=== PATIENT | female | born 1945 | race Caucasian/White ===

== ENCOUNTER 2016-11-16 08:47 | Outpatient (CLI) | payer MEDICARE, OTHER ==
[2016-11-16 09:32] LABS: eGFR (African) > 60; eGFR (Non-African) > 60
== END 2016-11-16 08:50 ==
LOC: LAB 08:47
PROVIDERS: ATTEND Family Medicine
DX: E78.2 Mixed hyperlipidemia (principal)
CPT/HCPCS: 36415; 80053; 80061

== ENCOUNTER 2016-11-20 10:25 | Outpatient (CLI) | payer MEDICARE, OTHER | END 2016-11-20 10:26 | LOC: RAD 10:25 | PROVIDERS: ATTEND Family Medicine | DX: M81.0 Age-related osteoporosis without current pathological fracture (principal) | CPT/HCPCS: 77080 ==

== ENCOUNTER 2016-12-06 12:52 | Outpatient (CLI) | payer MEDICARE, OTHER ==
[2016-12-06] MEDS ORDERED: DENOSUMAB 60 MG/ML ML SQ SCH (13:00)
[2016-12-06] MEDS ORDERED: DENOSUMAB 60 MG/ML ML SQ ONE (13:00)
== END 2016-12-06 12:53 ==
LOC: INF 12:52
PROVIDERS: ATTEND Family Medicine
DX: M81.0 Age-related osteoporosis without current pathological fracture (principal)
CPT/HCPCS: 96372; J0897

== ENCOUNTER 2017-05-14 08:46 | Day surgery (SDC) | payer MEDICARE, OTHER ==
[~2017-05-14 08:46] MED LIST: LACTATED RINGERS 1,000 ML IV.SOLN IV ONE; LIDOCAINE HCL/PF 2% 100 MG/5 ML VIAL IJ ONE; PROPOFOL 500 MG/50 ML VIAL IV ONE; SALINE FLUSH 10 ML DISP.SYRIN IVF ONE
--- NOTE | 2017-05-14 11:44 | GI Report ---
REFERRING PHYSICIAN: Dr. Alondra Narvaez LEARNING DISABLED TEACHER: Farhat Jonas MD PROCEDURE MEDICATION: Propofol as per anesthesia. INDICATIONS: Patient is a 71-year-old woman who has had a number of adenomatous polyps removed at the [facility] a little over 3 years ago. She has had polyps on a number of occasions. She denies a family history of colorectal cancer, though she has been a cigarette smoker for 40 years and still smokes. She also has hypertension and hyperlipidemia. PROCEDURE PERFORMED: Colonoscopy and polypectomy. PROCEDURE: An Olympus video colonoscope was advanced and slowly advanced all the way to the cecum. In the ascending colon, there was a 3 mm flat polyp removed with electrocautery. In the proximal transverse colon, there was a 4 mm polyp removed with electrocautery. In the sigmoid, the patient has multiple hyperplastic-appearing polyps. Four were removed, some of the larger ones to submit to pathology, but there were a number of polyps that were 2 mm size in the rectum and sigmoid consistent with hyperplastic polyps. Patient tolerated the procedure well. FINDINGS: Serrated adenoma-appearing polyp in the ascending colon and in the transverse colon and a number of probable hyperplastic polyps. The larger ones, 4 removed in the sigmoid colon. RECOMMENDATIONS: 1. Pending the pathology of the polyps, consider re-looking at her colon within 5 years. 2. Recommend strongly she discontinue tobacco usage, which is a risk factor for colon polyps and cancer formation. 3. Increase fiber in her diet. 4. Follow up with Dr. Narvaez. cc: Dr. Alondra MORENO
== END 2017-05-14 08:47 ==
LOC: OPSURG 08:46
PROVIDERS: ATTEND Internal Medicine Gastroenterology
DX: Z12.11 Encounter for screening for malignant neoplasm of colon (principal); D12.5 Benign neoplasm of sigmoid colon; D12.3 Benign neoplasm of transverse colon
CPT/HCPCS: 88305; J2001; J2704; J7120; 45385; S1016

== ENCOUNTER 2017-05-28 14:53 | Outpatient (CLI) | payer MEDICARE, OTHER ==
[2017-05-28 15:20] LABS: BASOPHILS % 0.6 (0.0-1.5); EOSINOPHILS % 2.1 % (0.0-6.8); MEAN CORPUSCULAR HEMOGLOBIN 31.2 pg (28.0-34.0); MEAN CORPUSCULAR VOLUME 94.8 fl (80.0-100.0); MONOCYTES % 4.6 % (0.0-11.0); NEUTROPHILS # 5.1 # k/uL (1.4-7.7)
[2017-05-28 15:40] LABS: eGFR (African) > 60; eGFR (Non-African) > 60
== END 2017-05-28 14:55 ==
LOC: LAB 14:53
PROVIDERS: ATTEND Family Medicine
DX: R42 Dizziness and giddiness (principal)
CPT/HCPCS: 36415; 80053; 85025

== ENCOUNTER 2017-06-11 08:32 | Outpatient (CLI) | payer MEDICARE, OTHER ==
[2017-06-11] MEDS ORDERED: DENOSUMAB 60 MG/ML ML SQ SCH (13:00)
[2017-06-11] MEDS ORDERED: DENOSUMAB 60 MG/ML ML SQ ONE (13:00)
== END 2017-06-11 09:00 ==
LOC: INF 08:32
PROVIDERS: ATTEND Family Medicine
DX: M81.0 Age-related osteoporosis without current pathological fracture (principal)
CPT/HCPCS: 96372; J0897

== ENCOUNTER 2017-11-27 08:42 | Outpatient (CLI) | payer MEDICARE, OTHER ==
[2017-11-27 09:26] LABS: eGFR (African) > 60; eGFR (Non-African) > 60
== END 2017-11-27 08:44 ==
LOC: LAB 08:42
PROVIDERS: ATTEND Family Medicine
DX: E78.2 Mixed hyperlipidemia (principal)
CPT/HCPCS: 36415; 80053; 80061

== ENCOUNTER 2017-12-10 12:55 | Outpatient (CLI) | payer MEDICARE, OTHER ==
[2017-12-10] MEDS ORDERED: DENOSUMAB 60 MG/ML ML SQ ONE (13:00)
[2017-12-10] MEDS ORDERED: DENOSUMAB 60 MG/ML ML SQ SCH (14:00)
== END 2017-12-10 12:56 ==
LOC: INF 12:55
PROVIDERS: ATTEND Family Medicine
DX: M81.0 Age-related osteoporosis without current pathological fracture (principal)
CPT/HCPCS: 96372; J0897

== ENCOUNTER 2018-06-24 09:49 | Outpatient (CLI) | payer MEDICARE, OTHER ==
[~2018-06-24 09:49] MED LIST changes: +DENOSUMAB 60 MG/ML SYRINGE SQ ONE; -LACTATED RINGERS 1,000 ML IV.SOLN IV ONE; -LIDOCAINE HCL/PF 2% 100 MG/5 ML VIAL IJ ONE; -PROPOFOL 500 MG/50 ML VIAL IV ONE; -SALINE FLUSH 10 ML DISP.SYRIN IVF ONE
== END 2018-06-24 09:50 ==
LOC: INF 09:49
PROVIDERS: ATTEND Family Medicine
DX: M81.0 Age-related osteoporosis without current pathological fracture (principal)
CPT/HCPCS: 96372; J0897

== ENCOUNTER 2018-12-10 08:24 | Outpatient (CLI) | payer MEDICARE, OTHER ==
--- NOTE | 2018-12-10 10:35 | Diagnostic Imaging Report ---
JANET TOVAR [facility] [address] [id number] Report Submission Date: December 10, 2018 10:17:21 AM CDT Patient Study Name: MANNY DIGGS Date: December 10, 2018 12:00:00 AM CDT Modality Type: DEXA\OT Gender: F Description: : 45 Institution: [facility] Physician: JANET TOVAR Examination: Bone density History: Assess bone mineralization Comparison exams: 20 November 2016 Technique: DEXA protocol Findings: Average bone mineral density from L1 through L4: 0.798 grams cm2. T score: -3.2 Average bone mineral density of the left femoral neck: 0.640 grams cm2. T score: -2.9 Average bone mineral density of the right femoral neck: 0.691grams cm2. T score: -2.5 Impression: Lumbar spine and hip osteoporosis. Electronically signed on December 10, 2018 10:17:21 AM CDT by: Darinel MORENO
== END 2018-12-10 08:25 ==
LOC: RAD 08:24
PROVIDERS: ATTEND Family Medicine
DX: M81.0 Age-related osteoporosis without current pathological fracture (principal)
CPT/HCPCS: 77080